=== PATIENT | female | born 1965 | race Caucasian/White ===

== ENCOUNTER 2016-07-15 16:14 | Emergency (ER) | payer SELFPAY ==
[~2016-07-15] VITALS: Ht 167.6 cm; Wt 61.4 kg
[2016-07-15 16:15] VITALS: BP 167/98; PULSE 107; RESP 16; O2SAT 100
[2016-07-15 16:58] LABS: BASOPHILS % (AUTO) 1.2 % (0-3); EOSINOPHILS % (AUTO) 3.5 % (0-5); MONOCYTES % (AUTO) 4.7 % (4-12); Mean Corpuscular Hemoglobin 29.4 pg (27.0-35.0); NEUTROPHILS % (AUTO) 45.3 % (40-74); Platelet Count 205 bil/L (150-400)
--- NOTE | 2016-07-15 17:20 | ED.REPORT ---
HPI-Chest Pain 40 and Over Date of Service Jul 15, 2016 ED Provider: Donato Thomas MD 51 year old female who is a former smoker and daily marijuana user with a history of lung nodules and HTN presents to the ER complaining of several months of productive cough. Associated symptoms include chest pain for the last week with radiation into her shoulders, and palpitations. Patient denies fever. She is a rambling and tangential historian. In September 2015 she moved here from [facility], and is concerned that symptoms may be due to some condition that resulted from the [place] nuclear disaster in 2010. Nursing Notes Stated Complaint: CHEST PAIN, COUGHING Chief Complaint: General Complaint Nursing Notes Reviewed: Yes Allergies: Coded Allergies: phenytoin (Verified Allergy, Severe, Anaphylaxis, 07/15/16) Scheduled Azithromycin (Zithromax (Z-Melchor)) 250 Mg Tablet 250 MG PO DIRECTED Take two tablets by mouth on day 1, then take one tablet daily on days 2 through 5. Promethazine DM Syrup (Promethazine DM Syrup) 118 Ml Syrup 5 ML PO HS General Time Seen by MD: 16:41 Chief Complaint Chest pain, Other (Productive Cough) Hx Obtained From: Patient Arrived By: Walk-in Sudden in Onset?: No Onset Occurred: 1 week ago Symptom Duration: Since onset Location: : Substernal Quality: Painful Radiation: : Shoulder left: Shoulder right Severity: Current: Moderate Severity: Maximum: Moderate Associated with: Denies: Fever Pertinent Negative: Pt denies other symptoms Context Related History: Reports: Hypertension Similar Sx Previous: No Past Medical History Past Medical History Lung nodule Bipolar Reports: Hypertension Reports: Thyroid disease (Hypothyroid) Smoking History Former Smoker Social History Drug Use: THC Ambulatory Status Independent Review of Systems Constitutional: Denies: Chills, Fever Respiratory: Reports: Prod cough, green, Shortness of breath Cardiovascular: Reports: Chest pain, Palpitations GI: Denies: Nausea, Vomiting Musculoskeletal: Reports: Joint pain (Shoulders) Complete sys rev & neg: except as marked. Physical Exam Initial Vital Signs Vital Signs (First) Date Time Temp Pulse Resp B/P Pulse Ox O2 Delivery O2 Flow Rate FiO2 07/15/16 16:15 36.9 107 16 167/98 100 Room Air Initial VS: Reviewed Head / Eyes: Atraumatic, Normocephalic Neck: Supple, Non-tender, Full range of motion Extremities: Vascular intact, Neuro intact, No swelling, No tenderness Skin: Warm, Dry, No cyanosis Neurologic: Alert, Oriented, Nonfocal General/Constitutional: Awake, Alert, Well developed Respiratory / Chest: Breath sounds NL, Breath sounds = bilat, No respiratory distress, No rales, No rhonchi, No wheezing, No stridor, No chest tenderness Cardiovascular: Heart rate NL, Regular rhythm, Heart sounds NL, No murmurs, Peripheral circulation NL, Pulses = bilaterally, No gross BP differential Abdomen: Soft, Non-tender, No guarding, No rebound, No distention Interpretation & Diagnostics Lab Results Interpretation Result Diagram: 07/15/16 1645 07/15/16 1645 Test 07/15/16 16:45 07/15/16 17:41 White Blood Count 6.9th/mm3 (3.8-10.1) Red Blood Count 4.66mil/mm3 (3.90-5.20) Hemoglobin 13.7g/dL (12.0-15.6) Hematocrit 39.6% (35.0-46.0) Mean Corpuscular Volume 85.0fL (81-100) Mean Corpuscular Hemoglobin 29.4pg (27.0-35.0) Mean Corpuscular Hemoglobin Concent 34.6% (32.0-37.0) Red Cell Distribution Width 11.7% (12.3-15.4) Platelet Count 205bil/L (150-400) Neutrophils (%) (Auto) 45.3% (40-74) Lymphocytes (%) (Auto) 45.0% (14-46) Monocytes (%) (Auto) 4.7% (4-12) Eosinophils (%) (Auto) 3.5% (0-5) Basophils (%) (Auto) 1.2% (0-3) D-Dimer < 0.5mg/L (<0.50) Sodium Level 139mEq/L (134-144) Potassium Level 3.9mEq/L (3.5-5.2) Chloride Level 100mEq/L (97-108) Carbon Dioxide Level 23mmol/L (18-29) Blood Urea Nitrogen 12mg/dL (6-24) Creatinine 0.78mg/dL (0.57-1.00) Estimat Glomerular Filtration Rate 111mL/min (>59) Glucose Level 100mg/dL (60-99) Calcium Level 9.4mg/dL (8.5-10.1) Magnesium Level 2.1mg/dL (1.6-2.6) Total Bilirubin 0.3mg/dL (0.0-1.2) Aspartate Amino Transf (AST/SGOT) 17U/L (0-50) Alanine Aminotransferase (ALT/SGPT) 20U/L (0-32) Alkaline Phosphatase 81U/L (25-150) Troponin T < 0.010ug/L (0.0-0.011) Total Protein 7.5g/dL (6.4-8.4) Albumin 4.8g/dL (3.4-5.0) Hold Paez Top Tube Received (Received) Hold Urine Received (Received) ECG Interpretation ECG Interpretation: Sinus rhythm, rate 80 Time: 17:35 Interpreted by: ED physician X-Ray Chest Interpretation Chest Xray Interpretation: IMPRESSION: No acute cardiopulmonary disease. Dictated by: Harsh Knox M.D. on 07/15/2016 at 17:18 Approved by: Harsh Knox M.D. on 07/15/2016 at 17:19 View: AP & lat Interpretation / Wet Read by: Interpret - Radiologist Re-Eval/Medical Decision Med Decision/Clinical Course 51-year-old female history of bipolar presenting with cough productive of green sputum 2 months. Vital signs stable mild tachycardia. She is perc negative. Lungs are clear. Chest x-ray is clear. Troponins negative. Will be treated for bronchitis. Follow-up with primary doctor tomorrow. Source of Hx: Old records Time of Eval: 17:50 Re-Evaluation/Progress Note: Discussed lab and radiology results and plan to discharge. Patient is amenable to the plan. Return precautions given. All other questions addressed. Counseled Regarding: Diagnosis, Lab results, Need for follow-up, When/why to return to ED Discharge & Departure Primary Impression: Bronchitis Disposition: Home Discharge Condition All VS Reviewed: Yes Condition: Stable Patient Instructions: Acute Bronchitis (DC) Additional Instructions: You have bronchitis. Your labs, chest x-ray, and EKG were all normal. I have prescribed you azithromycin, an antibiotic. Please take as directed. It is important that you complete the entire course of antibiotics, even if your symptoms improve. I have also prescribed you promethazine for your cough. Please take as directed. Do not consume alcohol or drive while taking promethazine. Follow-up with the primary care provider in 1-2 days at the number provided. Return to the ER if you develop new or worsening chest pain, difficulty breathing, coughing up blood, swelling of the legs, fever, chills, or any other concerning symptoms. Referrals: [facility] Attestation Portions of this note were transcribed by Tucker Macias. I, Dr. Thomas, personally performed the history, physical exam and medical decision-making; I reviewed and confirmed the accuracy of the information in the transcribed note. Signed by: Tyrell Dahl, 07/15/2016 and 17:55 copies to: [facility] Donato Thomas MD Jul 15, 2016 17:20 TUCKER MACIAS Jul 15, 2016 17:27
--- NOTE | 2016-07-15 17:20 | DRSVH ---
PROCEDURE: X-RAY CHEST, TWO VIEWS ([id number]) INDICATIONS: 51 year-old female with chest pain and shortness of breath. TECHNIQUE: 2 views of the chest were acquired. COMPARISON: None. FINDINGS: Surgical changes and devices: None. Lungs and pleura: No pleural effusions or pneumothorax. Lungs are clear. Mediastinum: Mediastinal contours are normal. Heart size is normal. Bones and chest wall: No suspicious bony abnormalities. Soft tissues appear unremarkable. IMPRESSION: No acute cardiopulmonary disease. Dictated by: Harsh Knox M.D. on 07/15/2016 at 17:18 Approved by: Harsh Knox M.D. on 07/15/2016 at 17:19
[2016-07-15 17:21] LABS: TROPONIN T < 0.010 ug/L (0.0-0.011)
[2016-07-15 17:31] LABS: Magnesium 2.1 mg/dL (1.6-2.6)
[2016-07-15] MEDS ORDERED: AZIT250T4 PO (17:52)
[2016-07-15] MEDS ORDERED: D-ME118S8 PO (17:52)
[2016-07-15 18:17] VITALS: BP 133/91; PULSE 94; RESP 20; O2SAT 100
[2016-07-15 18:25] VITALS: BP 133/91; PULSE 94; RESP 20; O2SAT 100
== END 2016-07-15 18:32 | disposition home or self-care (01) ==
LOC: SED 16:14
DX: J40 Bronchitis, not specified as acute or chronic (principal); R00.2 Palpitations; R07.2 Precordial pain; I10 Essential (primary) hypertension; E03.9 Hypothyroidism, unspecified; F31.9 Bipolar disorder, unspecified; Z87.891 Personal history of nicotine dependence; Z88.8 Allergy status to other drugs, medicaments and biological substances